=== PATIENT | male | born 1990 | race Caucasian/White ===

== ENCOUNTER 2018-08-27 15:59 | Outpatient (REF) | payer MEDICAID, SELFPAY | END 2018-08-27 16:19 | LOC: NCHCN 15:59 | PROVIDERS: PCP Nurse Practitioner Family; Visit Provider Registered Nurse | DX: R30.0 Dysuria (principal) | CPT/HCPCS: 87077; 87086; 87186 ==

== ENCOUNTER 2019-05-20 17:13 | Outpatient (REF) | payer MEDICAID, SELFPAY ==
--- NOTE | 2019-05-20 15:30 | PAPFT_PTH ---
PATIENT: LUIS CARLOS EVANS LOC: [facility] U#:[id number] AGE/SX: 28/F ROOM: RE05/20/[address]: Vivian Mancera : 1990 BED: DIS: 05/20/2019 SPEC #: [id number] RECD: 05/21/19 13:01 STATUS: RAVI RERenaldo #: [id number] ROSARIO: 05/20/19 15:[address]: Vivian Mancera DEPT: [facility] Cytology RECD BY: Brigid Cabrera Tissues: 1 - CX/ENDOCX FOR PAP SMEARS Procedures: PAP THIN PREP/[facility] Screening HPV DNA PROBE Comments: [id number] (CHLAMYDIA/GC)
[2019-05-22 14:17] LABS: Chlamydia Result Negative; GC Result Negative; Specimen Description SEE COMMENTS
== END 2019-05-20 17:33 ==
LOC: NCHCN 17:13
PROVIDERS: Visit Provider Registered Nurse
DX: Z11.3 Encounter for screening for infections with a predominantly sexual mode of transmission (principal); Z12.4 Encounter for screening for malignant neoplasm of cervix; Z11.51 Encounter for screening for human papillomavirus (HPV); Z00.00 Encounter for general adult medical examination without abnormal findings
CPT/HCPCS: 87491; 87591; 88142; 87624

== ENCOUNTER 2020-11-10 18:10 | Outpatient (REF) | payer MEDICAID, SELFPAY ==
[2020-11-14 17:07] LABS: COVID-19 RT-PCR Result NEGATIVE (Negative)
== END 2020-11-10 18:30 ==
LOC: NCHCN 18:10
PROVIDERS: PCP Nurse Practitioner Family; Visit Provider Nurse Practitioner Family
DX: J02.9 Acute pharyngitis, unspecified (principal)
CPT/HCPCS: U0003

== ENCOUNTER 2021-03-24 12:18 | Outpatient (REF) | payer MEDICAID, SELFPAY ==
[2021-03-26 10:59] LABS: COVID-19 RT-PCR UVMMC Result Negative (Negative)
== END 2021-03-24 12:19 | disposition home or self-care (01) ==
LOC: NCHCN 12:18
PROVIDERS: PCP Nurse Practitioner Family; Visit Provider Registered Nurse
DX: Z20.822 Contact with and (suspected) exposure to COVID-19 (principal); J06.9 Acute upper respiratory infection, unspecified
CPT/HCPCS: U0003